=== PATIENT | male | born 1995 | race Caucasian/White ===

== ENCOUNTER 2017-07-18 15:15 | Emergency (ER) | payer OTHER ==
[~2017-07-18] VITALS: Ht 175.3 cm; Wt 85.0 kg
[~2017-07-18 15:15] MED LIST: GUAN2ER PO; IBUP800T23 PO
--- NOTE | 2017-07-18 15:42 | PD ---
HPI Chief Complaint: alcohol intoxication Time Seen by Provider: 15:39 Travel History International Travel<30 days: No Contact w/Intl Traveler<30days: No Traveled to known affect area: No History of Present Illness HPI The patient is a 21-year-old male who presents to the emergency department via police as a [place] act. The patient apparently was drinking alcohol earlier today, states she was intoxicated in public, placed under a [place]man act. The patient states he is currently homeless. The patient estimates he drank 3-4 beers earlier today and smoked marijuana. He denies any current physical complaints. He denies any chest pain, shortness breath, nausea , vomiting, or abdominal pain. He denies any suicidal or homicidal ideation. The patient states he has no family or friends in the area that can come to the emergency department and pick him up. PFSH Past Medical History ADHD: Yes Depression: Yes Heart Rhythm Problems: Yes (ARRYTHMIA BEING MONITORED) Cancer: No Cardiovascular Problems: No Developmental Delay: No Diabetes: No Diminished Hearing: No Psychiatric: No Immunizations Current: Yes Migraines: No Seizures: No Thyroid Disease: No Ulcer: No Past Surgical History Narrative Surgical Noncontributory Social History Alcohol Use: No Tobacco Use: No Substance Use: Yes (POT) Allergies-Medications (Allergen,Severity, Reaction): Coded Allergies: No Known Allergies (Verified , 08/02/14) Reported Meds & Prescriptions Reported Meds & Active Scripts Active No Active Prescriptions or Reported Medications Review of Systems Except as stated in HPI: all other systems reviewed are Neg Psychiatric: Positive: Substance Abuse (alcohol use and marijuana use) Physical Exam Narrative GENERAL: Awake, alert, nontoxic-appearing 21-year-old male who appears his stated age and is in no acute respiratory distress. SKIN: Focused skin assessment warm/dry. HEAD: Atraumatic. Normocephalic. EYES: Pupils equal and round. Mild bilateral injection. ENT: No nasal bleeding or discharge. Mucous membranes pink and moist. NECK: Trachea midline. No JVD. CARDIOVASCULAR: Regular rate and rhythm. No murmur appreciated. RESPIRATORY: No accessory muscle use. Clear to auscultation. Breath sounds equal bilaterally. GASTROINTESTINAL: Abdomen soft, non-tender, nondistended. No rebound tenderness. MUSCULOSKELETAL: No obvious deformities. No clubbing. No cyanosis. No edema. NEUROLOGICAL: Awake and alert. No obvious cranial nerve deficits. Motor grossly within normal limits. Normal speech. Alert and oriented 3. Follows commands without difficulty. PSYCHIATRIC: Appropriate mood and affect; insight and judgment normal. Data Data Last Documented VS Vital Signs Date Time Temp Pulse Resp B/P (MAP) Pulse Ox O2 Delivery O2 Flow Rate FiO2 07/18/17 15:46 98.1 85 16 116/80 (92) 98 Orders Orders Alcohol (Ethanol) (07/18/17 15:32) Labs Laboratory Tests Test 07/18/17 15:44 Ethyl Alcohol Level LESS THAN 3 MG/DL MDM Medical Decision Making Medical Screen Exam Complete: Yes Emergency Medical Condition: Yes Medical Record Reviewed: Yes Interpretation(s) Laboratory Tests Test 07/18/17 15:44 Ethyl Alcohol Level LESS THAN 3 MG/DL Differential Diagnosis Differential diagnosis includes alcohol intoxication, illicit drug use, poor social situation. Narrative Course Alcohol level was sent to lab. The patient will be allowed to sleep it off and once he is ambulatory and does not pose a threat to himself in public, the patient will be discharged. The patient's alcohol level is now less than 3. Patient is stable for discharge. Diagnosis Primary Impression: Alcohol ingestion Patient Instructions: General Instructions Additional Instructions: Follow-up with a primary physician. Return if symptoms worsen or progress. Scripts No Active Prescriptions or Reported Meds Disposition: 01 DISCHARGE HOME Condition: Stable Torres Atkinson MD Jul 18, 2017 15:42
[2017-07-18 15:46] VITALS: BP 116/80; PULSE 85; RESP 16; TEMP 98.1; O2SAT 98
== END 2017-07-18 17:34 | disposition home or self-care (01) ==
LOC: NEDAMB 15:15
DX: Z72.89 Other problems related to lifestyle (principal); Z86.59 Personal history of other mental and behavioral disorders; Z86.79 Personal history of other diseases of the circulatory system
CPT/HCPCS: 80307; 99283